=== PATIENT | male | born 1960 | race Caucasian/White ===

== ENCOUNTER 2025-03-05 13:43 | Outpatient (RCR) | payer OTHER, SELFPAY | END 2025-03-05 23:59 | disposition home or self-care (01) | LOC: RST 13:43 | PROVIDERS: ATTENDING PHYSICIAN Otolaryngology; FAMILY PHYSICIAN Family Medicine | DX: J38.5 Laryngeal spasm (principal); R05.3 Chronic cough; R49.0 Dysphonia; Z98.890 Other specified postprocedural states | CPT/HCPCS: 92507; 92524 ==